=== PATIENT | male | born 1970 | race Caucasian/White ===

== ENCOUNTER 2016-11-10 17:14 | Inpatient (IN) | payer MEDICAID, OTHER ==
[2016-11-10 17:14] VITALS: BMI 27.1
[2016-11-10 18:01] LABS: BASO # 0.1 K/uL (0.0-0.2); BASO % 0.8 % (0.0-2.0); EOS # 0.2 K/uL (0.0-0.7); EOS % 2.1 % (0.0-4.0); HEMOGLOBIN 14.4 g/dL (12.0-18.0); LYMPH # 3.7 K/uL (1.0-4.3); MEAN CELL VOLUME 93.7 fL (80.0-94.0); MEAN CORPUSCULAR HEMOGLOBIN 31.2 pg (27.0-31.0); MEAN CORPUSCULAR HGB CONC 33.3 g/dL (33.0-37.0); MEAN PLATELET VOLUME 8.6 fL (7.2-11.7); MONO # 1.2 K/uL (0.0-0.8); MONO % 15.9 % (0.0-10.0); NEUT # 2.5 K/uL (1.8-7.0); NEUT % 32.2 % (50.0-75.0); RBC 4.61 Mil/uL (4.40-5.90); RED CELL DISTRIBUTION WIDTH 12.5 % (11.5-14.5); WHITE BLOOD COUNT 7.6 K/uL (4.8-10.8)
--- NOTE | 2016-11-10 18:08 | C.PDOC ---
History Of Present Illness <Hien Sandhu - Last Filed: 11/10/16 18:54> <Rajinder King - Last Filed: 11/10/16 19:43> 45 year old male presents to the ED seeking detox from heroin. Patient states last use of heroin was this morning through IV DA. He denies any physical complaints at this time or suicidal or homicidal ideations. (Hien Sandhu) History Per: Patient History/Exam Limitations: no limitations Onset/Duration Of Symptoms: Unknown Suicide/Self Injury Attempted (Context): None Associated Symptoms: denies: Suicidal Thoughts, Suicidal Plan Involuntary Hold By: None Recent travel outside of the [place]: No <Hien Sandhu - Last Filed: 11/10/16 18:54> <Rajinder King - Last Filed: 11/10/16 19:43> Time Seen by Provider: 11/10/16 17:32 Chief Complaint (Nursing): Substance Abuse Past Medical History Reviewed: Historical Data, Nursing Documentation, Vital Signs - Medical History PMH: Diabetes Family History: States: Unknown Family Hx - Social History Hx Tobacco Use: Yes Hx Alcohol Use: Yes Hx Substance Use: Yes (Heroin) - Immunization History Hx Tetanus Toxoid Vaccination: Yes Hx Influenza Vaccination: No Hx Pneumococcal Vaccination: No <Hien Sandhu - Last Filed: 11/10/16 18:54> Review Of Systems Constitutional: Negative for: Fever, Chills Cardiovascular: Negative for: Chest Pain, Palpitations Respiratory: Negative for: Cough, Shortness of Breath Gastrointestinal: Negative for: Nausea, Vomiting, Abdominal Pain, Diarrhea Psych: Negative for: Suicidal ideation <Hien Sandhu - Last Filed: 11/10/16 18:54> Physical Exam - Physical Exam Appears: Non-toxic, No Acute Distress Skin: Warm, Dry Head: Atraumatic Eye(s): bilateral: Normal Inspection, PERRL, EOMI Oral Mucosa: Moist Neck: Supple Chest: Symmetrical, No Deformity Cardiovascular: Rhythm Regular, No Murmur Respiratory: Normal Breath Sounds, No Rales, No Rhonchi, No Wheezing Gastrointestinal/Abdominal: Soft, No Tenderness, No Distention, No Guarding, No Rebound Extremity: Normal ROM, No Tenderness Neurological/Psych: Oriented x3, Normal Speech, Normal Cognition, Normal Cranial Nerves, Normal Motor, Normal Sensation, Normal Reflexes <Hien Sandhu - Last Filed: 11/10/16 18:54> ED Course And Treatment - Laboratory Results Result Diagrams: 11/10/16 17:58 11/10/16 17:58 O2 Sat by Pulse Oximetry: 98 (room air ) <Hien Sandhu - Last Filed: 11/10/16 18:54> - Laboratory Results Result Diagrams: 11/10/16 17:58 11/10/16 17:58 <Rajinder King - Last Filed: 11/10/16 19:43> Medical Decision Making <Hien Sandhu - Last Filed: 11/10/16 18:54> <Rajinder King - Last Filed: 11/10/16 19:43> Medical Decision Making: Patient is medically cleared. (Hien Sandhu) Disposition - Disposition Disposition Time: 18:55 <Hien Sandhu - Last Filed: 11/10/16 18:54> Discussed With : Vishnu Rhodes Doctor Will See Patient In The: Hospital Counseled Patient/Family Regarding: Diagnosis - Disposition Disposition Time: 19:43 <Rajinder King - Last Filed: 11/10/16 19:43> - Disposition Disposition: HOSPITALIZED Condition: STABLE - Clinical Impression Clinical Impression: Opiate dependence - Scribe Statement The provider has reviewed the documentation as recorded by the Scribe <Hien Sandhu - Last Filed: 11/10/16 18:54> <Rajinder King - Last Filed: 11/10/16 19:43> - Scribe Statement Jenny Tyson All medical record entries made by the Scribe were at my direction and personally dictated by me. I have reviewed the chart and agree that the record accurately reflects my personal performance of the history, physical exam, medical decision making, and the department course for this patient. I have also personally directed, reviewed, and agree with the discharge instructions and disposition. (Hien Sandhu) Physician Patient Turnover Patient Signed Over To: Rajinder King Handoff Comments: Pending possible detox admission <Hien Sandhu - Last Filed: 11/10/16 18:54>
[2016-11-10 18:09] LABS: ALBUMIN 4.3 g/dL (3.5-5.0)
[2016-11-10 18:11] LABS: URINE BACTERIA RARE (<OCC); URINE BILIRUBIN NEGATIVE (NEGATIVE); URINE BLOOD NEGATIVE (NEGATIVE); URINE CLARITY Clear (Clear); URINE COLOR Yellow (YELLOW); URINE GLUCOSE (UA) NORMAL (Normal); URINE LEUKOCYTE ESTERASE NEG Leu/uL (Negative); URINE NITRATE NEGATIVE (NEGATIVE); URINE PROTEIN NEGATIVE (NEGATIVE); URINE UROBILINOGEN NORMAL mg/dL (0.2-1.0)
[2016-11-10 18:12] LABS: ALB/GLOB RATIO 0.9 (1.0-2.1); AST/SGOT 155 U/L (17-59); GFR AFRICAN-AMERICAN > 60; GFR NON-AFRICAN AMERICAN > 60
[2016-11-10 18:13] LABS: ALT/SGPT 251 U/L (21-72); BARBITURATES, UR NEGATIVE (NEGATIVE); BLOOD UREA NITROGEN 14 mg/dL (9-20); CALCIUM 9.4 mg/dl (8.6-10.4)
[2016-11-10 18:14] LABS: BENZODIAZEPINES, UR NEGATIVE (NEGATIVE)
[2016-11-10 18:17] LABS: OPIATES, UR POSITIVE (NEGATIVE)
[2016-11-10 18:18] LABS: PHENCYCLIDINE, UR NEGATIVE (NEGATIVE)
--- NOTE | 2016-11-10 20:51 | PCM.BM ---
<KimberleyRosemary M - Last Filed: 11/10/16 20:50> Treatment Plan Problems - Problems identified on initial assessmt Heroin Dependence Date Initiated: 11/10/16 Time Initiated: 20:50 Assessment reference: NA Status: Active Treatment assets and liabiliti Patient Assests: ADL independent Patient Liabilities: substance abuse, medical problems - Milieu Protocol Maintain good personal hygiene: daily Encourage regular showers, daily Remind patient to perform daily oral care, daily Assist patient to perform ADL's Maintain personal safety: every shift Educate patient to report safety concerns to staff, every shift Monitor environment for contraband/sharps Medication safety: Monitor for expected outcome, potential side effects: every shift, Assess barriers to learning: every shift, Assess readiness for medication education: every shift <Princess Richey - Last Filed: 11/12/16 10:28> Family Contact Family involvement: Famliy/SO not involved Family contact: Patient declines to allow family contact at present - Goals for Treatment Patient goals for treatment: Complete ASI. Refer to Vivitrol provider as requested. Discharge/Continuing Care - Education Needs Education Needs: Patient Medication, Patient Diagnosis/Disease Process, Patient Coping Skills, Patient Anger Management skills, Patient Placement options, Patient Community resources - Discharge Discharge Criteria: Tolerates medication w/o severe side effects, Normal sleep pattern, No longer exhibiting s/s of withdrawal, Reduction of target symptoms Discharge to:: Home - Treatment Team Participation Patient/Family/SO Statement: 11/12/16 10:28 "I want the Vivitrol shot but not the counseling". Discussed with Family/SO: No Was Patient/Family/SO present at Treatment Team Meeting: Yes
[2016-11-11] MEDS ORDERED: Aluminum Hydroxide/Magnesium Hydroxide Susp (30 mL) PO PRN (08:54)
--- NOTE | 2016-11-11 08:54 | PCM.PSYCH ---
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 Patient reports that he relapsed soon after his last detox at [facility] 5 months ago. He reports he has been clean for 4 years, from [id number]. He states of injecting 4-10 bags daily, last abuse 3 bags yesterday. Patient reports withdrawal symptoms including sweating, headaches, and anxiety. He reports irritability but denies any depressive, manic or anxiety symptoms. Patient denies any auditory or visual hallucinations or any psychotic symptoms. He reports off and on drinking but denies any other substance abuse. He denies any history of inpatient psychiatric hospitalization and h/o follow up with any psychiatrist. Past medical history DM Current Medications: Active Medications Generic Name Dose Route Start Last Admin Trade Name Freq PRN Reason Stop Dose Admin Hydroxyzine HCl 25 mg 11/10/16 23:30 11/10/16 23:35 Atarax PO 25 mg Q6H PRN Administration Anxiety Lisinopril 2.5 mg 11/11/16 10:00 Zestril PO DAILY ELI Metformin HCl 500 mg 11/11/16 08:45 Glucophage PO BIDCC ELI Trazodone HCl 100 mg 11/10/16 23:30 11/10/16 23:35 Desyrel PO 100 mg HS ELI Administration Past Psychiatric History - Past Psychiatric History Previous Treatment History: Inpatient Pertinent Medical Hx (Current Medical&Sleep Prob, Allergies): Allergies Allergy/AdvReac Type Severity Reaction Status Date / Time No Known Allergies Allergy Verified 06/02/16 09:49 Glimepiride [Amaryl] 1 mg PO DAILY #30 tab 06/12/16 Lisinopril [Zestril] 2.5 mg PO DAILY #30 tab 06/12/16 MetFORMIN [glucoPHAGE] 500 mg PO BID #60 tab 06/12/16 traZODone [Desyrel] 50 mg PO HS #30 tab 06/13/16 Review of Systems - Review of Systems All systems: reviewed and no additional remarkable complaints except - Psychiatric Psychiatric: Anxiety, Irritability. absent: Suicidal Ideation Mental Status Examination - Personal Presentation Personal Presentation: Looks stated age - Affect Affect: Constricted - Motor Activity Motor Activity: Calm - Reliability in Providing Information Reliability in Providing Information: Good - Speech Speech: Organized - Mood Mood: Anxious - Formal Thought Process Formal Thought Process: No Impairment - Obsessions/Compulsions Obsessions: No Compulsions: No - Cognitive Functions Orientation: Person, Place, Situation, Time Sensorium: Alert Attention/Concentration: Attentive Abstract Thinking: Aladdin Estimate of Intelligence: Below average Judgement: Imparied, as evidence by: Poor judgement, Intact, as evidence by: Insight regarding need for hospitalization - Risk Risk: Withdrawal, Diminished functioning - Strength & Assets Inventory Strength & Assets Inventory: Family support, Cooperative DSM 5 DX - DSM 5 DSM 5 Diagnosis: Opioid use disorder severe Opioid withdrawal Alcohol use disorder moderate - Recommended/Plan of Treatment Treatment Recommendations and Plan of Treatment: Opioids: CBT Psychoeducation Supportive therapy, individual therapy Clonidine when necessary Methadone taper Alcohol: CBT Psychoeducation Supportive therapy, individual therapy Use [place] for abstinence DM Continue prescribed medications (metformin, glimepride) Monitor s/s - Smoking Cessation Smoking Cessation Initiated: No
[2016-11-11] MEDS ORDERED: Patient's Own Drops OU SCH (10:00)
[2016-11-11 11:56] VITALS: RESP 18
[2016-11-11] MEDS: Dorzolamide 2% Opht Sol 10ml OD SCH ×2 (13:18→17:02)
[2016-11-11] MEDS: PrednisoLONE 1% Opht Susp(5 ml) OD SCH ×3 (13:19→21:50)
[2016-11-11] MEDS: Brimonidine 0.2% Opth Sol (5ml) OD SCH ×2 (13:19→21:50)
[2016-11-12] MEDS: Brimonidine 0.2% Opth Sol (5ml) OD SCH ×3 (06:24→21:45)
[2016-11-12] MEDS: PrednisoLONE 1% Opht Susp(5 ml) OD SCH ×4 (09:10→21:46)
[2016-11-12] MEDS: Dorzolamide 2% Opht Sol 10ml OD SCH ×3 (09:10→17:12)
--- NOTE | 2016-11-12 10:02 | PCM.PYCHPN ---
Psychiatric Progress Note - Psychiatric Progress Note Patient seen today, length of contact: 15 min Patient Chief Complaint: 'I came here to get help.' Problems Identified/Issues Discussed: Patient seen and evaluated, chart reviewed and discussed with the nurse. The patient reports irritability and reports withdrawal symptoms including abdominal cramps, back pain, anxiety, and sweating. He is tolerating the detox protocol medications and denies any suicidal ideation or homicidal ideation. He denies any side effects of the medications. Supportive therapy and psychoeducation were given. Medication Change: Yes (Methadone taper) Medical Record Reviewed: Yes Mental Status Examination - Cognitive Function Orientation: Person, Place, Situation, Time Memory: Intact Attention: WNL Concentration: Poor Association: WNL Fund of Knowledge: Poor - Mood Mood: Anxious - Affect Affect: Constricted - Speech Speech: Soft - Formal Thought Process Formal Thought Process: No Impairment - Suicidal Ideation Suicidal Ideation: No - Homicidal Ideation Homicidal Ideation: No Goal/Treatment Plan - Goal/Treatment Plan Need for Continued Stay: Discharge may exacerbated symptoms, Severe functional impairment Progress Toward Problem(s) and Goals/Treatment Plan: Opioids: CBT Psychoeducation Supportive therapy, individual therapy Clonidine when necessary Methadone taper Alcohol: CBT Psychoeducation Supportive therapy, individual therapy Use CT for abstinence DM Continue prescribed medications (metformin, glimepride) Monitor s/s - Smoking Cessation Smoking Cessation Initiated: No
[2016-11-13] MEDS: Brimonidine 0.2% Opth Sol (5ml) OD SCH ×3 (06:11→21:57)
[2016-11-13] MEDS: PrednisoLONE 1% Opht Susp(5 ml) OD SCH ×4 (09:13→21:58)
[2016-11-13] MEDS: Dorzolamide 2% Opht Sol 10ml OD SCH ×3 (09:13→18:15)
--- NOTE | 2016-11-13 11:49 | PCM.PYCHPN ---
Psychiatric Progress Note - Psychiatric Progress Note Patient seen today, length of contact: 16 min Patient Chief Complaint: "I feel better" Problems Identified/Issues Discussed: Patient seen and evaluated, chart reviewed and discussed with the nurse. The patient reports that he feels better today, but was uncomfortable last night. He denies any withdrawal symptoms. Patient is tolerating the detox protocol medications and denies depressive, manic or psychotic symptoms. He denies any side effects of the medications. Supportive therapy and psychoeducation were given. He wants to leave early tomorrow Medication Change: Yes (Methadone taper) Medical Record Reviewed: Yes Mental Status Examination - Cognitive Function Orientation: Person, Place, Situation, Time Memory: Intact Attention: WNL Concentration: Poor Association: WNL Fund of Knowledge: Poor - Mood Mood: Anxious - Affect Affect: Constricted - Speech Speech: Soft - Formal Thought Process Formal Thought Process: No Impairment - Suicidal Ideation Suicidal Ideation: No - Homicidal Ideation Homicidal Ideation: No Goal/Treatment Plan - Goal/Treatment Plan Need for Continued Stay: Discharge may exacerbated symptoms, Severe functional impairment Progress Toward Problem(s) and Goals/Treatment Plan: Continue meds No change in meds Support and psychoed Mi and cbt Estimated Date of D/C: 11/14/16
[2016-11-14 06:27] VITALS: BP 124/78; PULSE 62; TEMP 99; O2SAT 97
[2016-11-14] MEDS: Brimonidine 0.2% Opth Sol (5ml) OD SCH (06:32)
--- NOTE | 2016-11-14 08:40 | PCM.PYCHDC ---
Mental Status Examination - Mental Status Examination Orientation: Person, Place, Situation, Time Memory: Intact Mood: Neutral Affect: Other (Appropriate) Speech: Appropriate Attention: WNL Concentration: WNL Formal Thought Process: No Impairment Suicidal Ideation: No Current Homicidal Ideation?: No Discharge Summary - Discharge Note Reason for Hospitalization: Patient came to the hospital seeking help for heroin detox. Laboratory Data: Abnormal Lab Results 11/14/16 07:22 POC Glucose (mg/dL) 203 H Consultations:: List each consultation separately and include: 1. Reason for request. 2. Findings. 3. Follow-up Summary of Hospital Course include:: 1. Description of specific treatment plan utilized for patients during their course of treatmen. 2. Summarize the time- course for resolution of acute symptoms and/or regressed behaviors. 3. Describe issues identified and worked on during hospitalization. 4. Describe medication utilized. 5. Describe medical problems identified and treated. 6. 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 Patient reports that he relapsed soon after his last detox at [facility] 5 months ago. He reports he has been clean for 4 years, from [id number]. He states of injecting 4-10 bags daily, last abuse 3 bags yesterday. Patient reports withdrawal symptoms including sweating, headaches, and anxiety. He reports irritability but denies any depressive, manic or anxiety symptoms. Patient denies any auditory or visual hallucinations or any psychotic symptoms. He reports off and on drinking but denies any other substance abuse. He denies any history of inpatient psychiatric hospitalization and h/o follow up with any psychiatrist. Upon discharge The pt was admitted and started on treatment with psychotherapy, support, psychoeducation and medications. KS and CBT used. The pt attended groups and activities, as well as milieu therapy. All the risks and benefits of medications are discussed and the patient understood and agreed. The pt improved with the treatments provided. After care discussed with the patient. Pt states that he will attend [facility] in [place], [place]. - Final Diagnosis (DSM 5) Condition upon Discharge: STABLE DSM 5: Opioid use disorder severe Opioid withdrawal Alcohol use disorder moderate Disposition: HOME/ ROUTINE Follow-up Treatment Plan: Patient states that he will go to [facility] in [place], [place] after discharge. He states that he will try Vivitrol to stay clean. Continue below medications after discharge. Follow after care plan as discussed. Use relapse prevention skills Return to ER or call 911 if suicidal, homicidal or symptoms relapse. Stay away from stress, alcohol and drugs. See primary doctor once a year. Prescriptions/Medication Reconciliation: hydrOXYzine HCl [Atarax] 25 mg PO Q8 #60 tab traZODone [Desyrel] 100 mg PO HS #30 tab
== END 2016-11-14 08:50 | disposition home or self-care (01) | DRG 745 ==
LOC: C.ER 17:14 → C.7D 19:43
PROVIDERS: ADMIT Psychiatry & Neurology Psychiatry; ATTEND Psychiatry & Neurology Psychiatry
PROC: HZ2ZZZZ Detoxification Services for Substance Abuse Treatment (ICD-10-PCS; principal; 2016-11-11)
PROC: HZ52ZZZ Individual Psychotherapy for Substance Abuse Treatment, Cognitive-Behavioral (ICD-10-PCS; 2016-11-11)
PROC: HZ59ZZZ Individual Psychotherapy for Substance Abuse Treatment, Supportive (ICD-10-PCS; 2016-11-11)
PROC: HZ56ZZZ Individual Psychotherapy for Substance Abuse Treatment, Psychoeducation (ICD-10-PCS; 2016-11-11)
DX: F11.23 Opioid dependence with withdrawal (principal); E11.9 Type 2 diabetes mellitus without complications; F17.210 Nicotine dependence, cigarettes, uncomplicated; Z72.89 Other problems related to lifestyle

== ENCOUNTER 2017-03-22 15:57 | Emergency (ER) | payer MEDICAID ==
[2017-03-22 15:58] VITALS: BMI 27.1
[2017-03-22 16:01] VITALS: BP 128/83; PULSE 83; RESP 20; TEMP 97.8; O2SAT 98
--- NOTE | 2017-03-22 16:23 | C.PDOC ---
History Of Present Illness PATIENT LEFT WITHOUT BEING SEEN BY ME. NO PATIENT CONTACT WAS MADE BY ME. PER ADMINISTRATION, I WAS TOLD TO SIGN THE CHART, SOLELY FOR THE PURPOSE OF HAVING PATIENT OFF OF MY LIST, NOT BECAUSE I SAW THE PATIENT. I WAS ALSO TOLD BY ADMINISTRATION TO WRITE A STATEMENT STATING THAT I WAS NOT INVOLVED IN THIS PATIENT'S CARE Time Seen by Provider: 03/22/17 16:07 Chief Complaint (Nursing): Substance Abuse Past Medical History Vital Signs: Last Vital Signs Temp 97.8 F 03/22/17 15:59 Pulse 83 03/22/17 15:59 Resp 20 03/22/17 15:59 BP 128/83 03/22/17 15:59 Pulse Ox 98 03/22/17 16:41 - Medical History PMH: Diabetes, Hepatitis (Pt indicates he has Hepatitis C) Denies: HIV, HTN, Chronic Kidney Disease, Seizures, Sexually Transmitted Disease - [facility] Procedures APPLICATION OF SPLINT (10/15/13) DETOXIFICATION SERVICES FOR SUBSTANCE ABUSE TREATMENT (11/10/16) INDIV PSYCHOTHERAPY FOR SUBSTANCE ABUSE TREATMENT, SUPPORT (11/10/16) INDIV PSYCHOTHERAPY FOR SUBSTANCE ABUSE, COGNITIV BEHAVIORAL (11/10/16) INDIV PSYCHOTHERAPY FOR SUBSTANCE ABUSE, PSYCHOEDUCATION (11/10/16) MEDS MGMT FOR SUBSTANCE ABUSE TREATMENT, ANTABUSE (06/10/16) Family History: States: Unknown Family Hx - Social History Hx Tobacco Use: Yes Hx Alcohol Use: Yes (Ocassionally as per Patient) Hx Substance Use: Yes (Heroin IV) - Immunization History Hx Tetanus Toxoid Vaccination: Yes Hx Influenza Vaccination: No Hx Pneumococcal Vaccination: No ED Course And Treatment O2 Sat by Pulse Oximetry: 98 Disposition - Disposition Disposition: LEFT W/O BEING SEEN - ER ONLY Disposition Time: 16:30 Condition: UNKNOWN Forms: [facility] (Bahamian) - Clinical Impression Clinical Impression: Drug abuse
== END 2017-03-22 16:43 | disposition left against medical advice (07) ==
LOC: C.ER 15:57
DX: Z02.89 Encounter for other administrative examinations (principal); F19.10 Other psychoactive substance abuse, uncomplicated

== ENCOUNTER 2017-03-22 16:55 | Inpatient (IN) | payer MEDICAID ==
[2017-03-22 16:55] VITALS: BMI 27.1
--- NOTE | 2017-03-22 17:08 | C.PDOC ---
History Of Present Illness 46 yr old male presents to the ER for heroin detox. Last heroin use was 11am this morning and alcohol use [employer]. Patient is a pre-screened. Patient denies chest pain, SOB, nausea, vomiting, abdominal pain, SI or HI. Time Seen by Provider: 03/22/17 17:07 Chief Complaint (Nursing): Substance Abuse History Per: Patient History/Exam Limitations: no limitations Onset/Duration Of Symptoms: Persistent Suicide/Self Injury Attempted (Context): None Past Medical History Reviewed: Historical Data, Nursing Documentation, Vital Signs Vital Signs: Last Vital Signs Temp 98 F 03/22/17 19:26 Pulse 80 03/22/17 19:26 Resp 18 03/22/17 19:26 BP 129/72 03/22/17 19:26 Pulse Ox 97 03/22/17 19:26 - Medical History PMH: Diabetes, Hepatitis (Pt indicates he has Hepatitis C) - [facility] Procedures APPLICATION OF SPLINT (10/15/13) DETOXIFICATION SERVICES FOR SUBSTANCE ABUSE TREATMENT (11/10/16) INDIV PSYCHOTHERAPY FOR SUBSTANCE ABUSE TREATMENT, SUPPORT (11/10/16) INDIV PSYCHOTHERAPY FOR SUBSTANCE ABUSE, COGNITIV BEHAVIORAL (11/10/16) INDIV PSYCHOTHERAPY FOR SUBSTANCE ABUSE, PSYCHOEDUCATION (11/10/16) MEDS MGMT FOR SUBSTANCE ABUSE TREATMENT, ANTABUSE (06/10/16) Family History: States: No Known Family Hx - Social History Hx Tobacco Use: Yes Hx Alcohol Use: Yes (Ocassionally as per Patient) Hx Substance Use: Yes (Heroin IV) - Immunization History Hx Tetanus Toxoid Vaccination: Yes Hx Influenza Vaccination: No Hx Pneumococcal Vaccination: No Review Of Systems Except As Marked, All Systems Reviewed And Found Negative. Cardiovascular: Negative for: Chest Pain Respiratory: Negative for: Shortness of Breath Gastrointestinal: Negative for: Nausea, Vomiting, Abdominal Pain Psych: Negative for: Suicidal ideation Physical Exam - Physical Exam Appears: Non-toxic, No Acute Distress, Other (No acute intoxication.) Skin: Warm, Dry, No Rash Head: Atraumatic, Normacephalic Oral Mucosa: Moist Respiratory: Normal Breath Sounds, No Rales, No Rhonchi, No Stridor, No Wheezing Gastrointestinal/Abdominal: Normal Exam, Soft, No Tenderness, No Guarding, No Rebound Extremity: Normal ROM, No Swelling Neurological/Psych: Oriented x3, Normal Speech, Normal Motor, Normal Sensation ED Course And Treatment - Laboratory Results Result Diagrams: 03/22/17 17:37 03/22/17 17:37 O2 Sat by Pulse Oximetry: 98 (RA) Pulse Ox Interpretation: Normal Reevaluation Time: 18:17 Reassessment Condition: Unchanged (MED CLEAR FOR CRISIS EVAL. MEDICINE PRN FOR EVAL OF ABN LFT. CRISIS NOTIFIED) Progress - Re-Evaluation Re-evaluation Note: 03/22/17 19:24 PS RAN OUT OF DM YESTERDAY. LAST DOSE YESTERDAY. OTHERWISE COMPLIANT. WILL DOSE INSULIN, MED CONSULT FOR FURTHER DM MGMT - Data Reviewed Data Reviewed: Lab Medical Decision Making Medical Decision Making: PLAN: * Alcohol Serum * Drug Screen * CBC * CMP * Urinalysis Disposition Counseled Patient/Family Regarding: Studies Performed, Diagnosis - Disposition Disposition: HOSPITALIZED Disposition Time: 19:51 Condition: STABLE Forms: [facility] (Khmer) - POA Present On Arrival: Poor Glycemic Control - Clinical Impression Clinical Impression: Diabetes type 2, uncontrolled, Opiate dependence, Alcohol abuse - Scribe Statement The provider has reviewed the documentation as recorded by the Pamela Mckeon Provider Attestation: All medical record entries made by the Joseyibger were at my direction and personally dictated by me. I have reviewed the chart and agree that the record accurately reflects my personal performance of the history, physical exam, medical decision making, and the department course for this patient. I have also personally directed, reviewed, and agree with the discharge instructions and disposition. Decision To Admit - Pt Status Changed To: Hospital Disposition Of: Inpatient - Admit Certification Admit to Inpatient:: After my assessment, the patient will require hospitalization for at least two midnights. This is because of the severity of symptoms shown, intensity of services needed, and/or the medical risk in this patient being treated as an outpatient. - InPatient: Physician Admission Certification: I certify that this patient requires 2 or more midnights of care for the following reason:: SEE NOTE - . Bed Request Type: Detox Admitting Physician: Mya Fields Patient Diagnosis: Diabetes type 2, uncontrolled, Opiate dependence, Alcohol abuse
[2017-03-22 17:41] LABS: BASO % 0.5 % (0.0-2.0); EOS # 0.1 K/uL (0.0-0.7); EOS % 1.7 % (0.0-4.0); HEMATOCRIT 41.2 % (35.0-51.0); LYMPH # 4.1 K/uL (1.0-4.3); LYMPH % 53.5 % (20.0-40.0); MEAN CELL VOLUME 91.7 fL (80.0-94.0); MEAN CORPUSCULAR HEMOGLOBIN 30.9 pg (27.0-31.0); MEAN CORPUSCULAR HGB CONC 33.7 g/dL (33.0-37.0); MEAN PLATELET VOLUME 8.5 fL (7.2-11.7); MONO # 0.9 K/uL (0.0-0.8); MONO % 12.2 % (0.0-10.0); NRBC % 0.1 % (0.0-2.0); RED CELL DISTRIBUTION WIDTH 12.9 % (11.5-14.5); WHITE BLOOD COUNT 7.8 K/uL (4.8-10.8)
[2017-03-22 17:46] LABS: URINE BILIRUBIN NEGATIVE (NEGATIVE); URINE BLOOD NEGATIVE (NEGATIVE); URINE COLOR Colorless (YELLOW); URINE GLUCOSE (UA) 3+ mg/dL (Normal); URINE KETONE NEGATIVE (NEGATIVE); URINE LEUKOCYTE ESTERASE NEG Leu/uL (Negative); URINE PROTEIN NEGATIVE (NEGATIVE); URINE UROBILINOGEN NORMAL mg/dL (0.2-1.0); WBC URINE < 1 /hpf (0-5)
[2017-03-22 18:02] LABS: ALCOHOL SERUM 171 mg/dl (0-10); ALKALINE PHOSPHATASE 108 U/L (38-126); ALT/SGPT 288 U/L (21-72); AST/SGOT 167 U/L (17-59); BLOOD UREA NITROGEN 9 mg/dL (9-20); CALCIUM 8.7 mg/dl (8.6-10.4); CARBON DIOXIDE 24 mmol/L (22-30); CHLORIDE 97 mmol/L (98-107); GFR AFRICAN-AMERICAN > 60; GLUCOSE,RANDOM 307 mg/dL (75-110); SODIUM 131 mmol/L (132-148); TOTAL PROTEIN 8.7 g/dL (6.3-8.3)
[2017-03-22] MEDS ORDERED: (Novolin R) Insulin Human Regular 100 units/ml vial SC STA (19:24)
[2017-03-22] MEDS ORDERED: (Novolin R) Insulin Human Regular 100 units/ml vial ONE (19:29)
--- NOTE | 2017-03-22 20:14 | PCM.BM ---
<Chiquita Wells - Last Filed: 03/22/17 20:12> Treatment Plan Problems - Problems identified on initial assessmt potiential for opiate withdrawal Date Initiated: 03/22/17 Time Initiated: 20:13 Assessment reference: NA Status: Active potiential for autonomic instability related to alcohol withdrawal Date Initiated: 03/22/17 Time Initiated: 20:14 Assessment reference: NA Status: Active Treatment assets and liabiliti Patient Assests: ADL independent Patient Liabilities: substance abuse, medical problems - Milieu Protocol Maintain good personal hygiene: daily Encourage regular showers, daily Remind patient to perform daily oral care, daily Assist patient to perform ADL's Maintain personal safety: every shift Educate patient to report safety concerns to staff, every shift Monitor environment for contraband/sharps Medication safety: Monitor for expected outcome, potential side effects: every shift, Assess barriers to learning: every shift, Assess readiness for medication education: every shift <Mya Fields - Last Filed: 03/22/17 21:30> - Diagnosis (1) Opioid use disorder, severe, dependence Status: Acute Interventions: 03/22/17 21:31 * Assess 7x/week regarding severity of withdrawal * Educate regarding risks, benefits, side effects and alternatives of medications * Use Motivational Interviewing for abstinence * Use CBT for relapse prevention * Medication management for withdrawal symptoms * Encourage medication assisted treatment * (2) Alcohol use disorder, severe, dependence Status: Acute Interventions: 03/22/17 21:31 * Assess 7x/week regarding severity of withdrawal * Educate regarding risks, benefits, side effects and alternatives of medications * Use Motivational Interviewing for abstinence * Use CBT for relapse prevention * Medication management for withdrawal symptoms * Encourage medication assisted treatment * <Princess Richey - Last Filed: 03/23/17 14:35> Family Contact Family involvement: Famliy/SO not involved Family contact: Patient declines to allow family contact at present - Goals for Treatment Patient goals for treatment: Complete detox and discuss aftercare options with counselors. Discharge/Continuing Care - Education Needs Education Needs: Patient Medication, Patient Diagnosis/Disease Process, Patient Coping Skills, Patient Anger Management skills, Patient Placement options, Patient Community resources - Discharge Discharge Criteria: No longer exhibiting s/s of withdrawal, Reduction of target symptoms Discharge to:: Substance Abuse Rehab - Treatment Team Participation Discussed with Family/SO: No Was Patient/Family/SO present at Treatment Team Meeting: Yes
[2017-03-22] MEDS ORDERED: Aluminum Hydroxide/Magnesium Hydroxide Susp (30 mL) PO PRN (21:27)
[2017-03-23 07:52] LABS: ALKALINE PHOSPHATASE 110 U/L (38-126); ALT/SGPT 240 U/L (21-72); AST/SGOT 132 U/L (17-59); BILIRUBIN,TOTAL 1.2 mg/dL (0.2-1.3); BLOOD UREA NITROGEN 14 mg/dL (9-20); CALCIUM 8.7 mg/dl (8.6-10.4); CARBON DIOXIDE 26 mmol/L (22-30); CHLORIDE 100 mmol/L (98-107); GFR AFRICAN-AMERICAN > 60; GLUCOSE,RANDOM 288 mg/dL (75-110); MAGNESIUM 1.7 mg/dL (1.6-2.3); POTASSIUM 4.1 mmol/L (3.6-5.2); SODIUM 135 mmol/L (132-148); TOTAL PROTEIN 7.8 g/dL (6.3-8.3)
[2017-03-23 09:02] LABS: THYROID STIMULATING HORMONE 0.06 mIU/L (0.46-4.68)
[2017-03-23] MEDS: Multiple Vitamins Tab PO SCH (10:03)
--- NOTE | 2017-03-23 10:29 | PCM.PSYCH ---
Initial Psychiatric Evaluation - Initial Psychiatric Evaluation Type of Admission: Voluntary Legal Status: Capacity Chief Complaint (in patient's own words): I came to get help.' History of Present Illness and Precipitating Events: Patient is a 35-year-old HM, currently unemployed presented to the ED for heroin and alcohol detoxification. Patient denies any past history of inpatient psychiatric hospitalizations or any history of follow-up with any psychiatrist. However, he reports multiple detox admissions in the apst, last one was at on , few months ago. Pt reports he uses 4 bags of heroin intravenously daily, last use was yesterday. He also reports of drinking 6-pack of beer daily, also last using yesterday. As per the pt, he wanted to become sober, so he came to the detox to get help. Patient reports of withdrawal symptoms including sweating, headaches, anxiety, and cramps. However, denies any feelings of hopelessness and helplessness. He denies any suicidal ideation or homicidal ideation or any auditory or visual hallucinations. PMH None reported Current Medications: Active Medications Generic Name Dose Route Start Last Admin Trade Name Freq PRN Reason Stop Dose Admin Al Hydrox/Mg Hydrox/Simethicone 30 ml 03/22/17 21:27 Maalox 30 Ml PO TID PRN Indigestion / Heartburn Clonidine HCl 0.1 mg 03/22/17 21:28 Catapres PO Q4H PRN Symptoms of alcohol withdrawl Folic Acid 1 mg 03/23/17 10:00 03/23/17 10:03 Folic Acid PO 1 mg DAILY ELI Administration Glimepiride 1 mg 03/23/17 10:00 03/23/17 10:27 Amaryl PO 1 mg DAILY ELI Administration Hydroxyzine HCl 50 mg 03/22/17 21:22 Atarax PO Q6H PRN Anxiety Ibuprofen 600 mg 03/22/17 21:22 Motrin Tab PO Q6H PRN Pain, moderate (4-7) Lisinopril 2.5 mg 03/23/17 10:00 Zestril PO DAILY ELI Loperamide HCl 2 mg 03/22/17 21:27 Imodium PO Q8 PRN Diarrhea Lorazepam 2 mg 03/22/17 21:30 03/23/17 10:04 Ativan PO 03/26/17 21:29 2 mg Q6H ELI Administration Taper Lorazepam 1 mg 03/22/17 21:28 Ativan PO Q4H PRN Symptoms of alcohol withdrawl Metformin HCl 1,000 mg 03/23/17 10:00 03/23/17 10:04 Glucophage PO 1,000 mg BID ELI Administration Multivitamins 1 tab 03/23/17 10:00 03/23/17 10:03 Hexavitamin PO 1 tab DAILY ELI Administration Ondansetron HCl 4 mg 03/22/17 21:27 Zofran Tab PO Q8 PRN Nausea/Vomiting Thiamine HCl 100 mg 03/23/17 10:00 03/23/17 10:03 Vitamin B1 Tab PO 100 mg DAILY ELI Administration Trazodone HCl 100 mg 03/22/17 21:22 03/22/17 22:06 Desyrel PO 100 mg HS PRN Administration Insomnia Past Psychiatric History - Past Psychiatric History Previous Treatment History: Inpatient Pertinent Medical Hx (Current Medical&Sleep Prob, Allergies): Allergies Allergy/AdvReac Type Severity Reaction Status Date / Time No Known Allergies Allergy Verified 03/22/17 17:00 Glimepiride [Amaryl] 1 mg PO DAILY #30 tab 06/12/16 Lisinopril [Zestril] 2.5 mg PO DAILY #30 tab 06/12/16 MetFORMIN [glucoPHAGE] 500 mg PO BID #60 tab 06/12/16 traZODone [Desyrel] 50 mg PO HS #30 tab 06/13/16 hydrOXYzine HCl [Atarax] 25 mg PO Q8 #60 tab 11/13/16 traZODone [Desyrel] 100 mg PO HS #30 tab 11/13/16 Review of Systems - Review of Systems All systems: reviewed and no additional remarkable complaints except - Psychiatric Psychiatric: Anxiety, Irritability Mental Status Examination - Personal Presentation Personal Presentation: Looks stated age - Affect Affect: Constricted - Motor Activity Motor Activity: Calm - Reliability in Providing Information Reliability in Providing Information: Good - Speech Speech: Organized - Mood Mood: Anxious - Formal Thought Process Formal Thought Process: No Impairment - Obsessions/Compulsions Obsessions: No Compulsions: No - Cognitive Functions Orientation: Person, Place, Situation, Time Sensorium: Alert Attention/Concentration: Attentive Abstract Thinking: [place] Estimate of Intelligence: Below average Judgement: Imparied, as evidence by: Poor judgement, Intact, as evidence by: Insight regarding need for hospitalization - Risk Risk: Withdrawal, Diminished functioning - Strength & Assets Inventory Strength & Assets Inventory: Family support DSM 5 DX - DSM 5 DSM 5 Diagnosis: Opioid use disorder severe Opioid withdrawal Alcohol use disorder severe Alcohol withdrawal - Recommended/Plan of Treatment Treatment Recommendations and Plan of Treatment: Opioid use disorder severe CBT Psychoeducation Supportive therapy, individual therapy Use [place] for abstinence Opioid withdrawal CBT Psychoeducation Supportive therapy, individual therapy Clonidine when necessary Methadone taper Alcohol use disorder severe CBT Psychoeducation Supportive therapy, individual therapy Use [place] for abstinence Alcohol withdrawal CBT Psychoeducation Supportive therapy, individual therapy Ativan taper - Smoking Cessation Smoking Cessation Initiated: No
[2017-03-24] MEDS: Multiple Vitamins Tab PO SCH (09:53)
[2017-03-24] MEDS: Dorzolamide 2% Opht Sol 10ml OD SCH (18:02)
[2017-03-24] MEDS: Brimonidine 0.2% Opth Sol (5ml) OD SCH (18:04)
[2017-03-24] MEDS: PrednisoLONE 1% Opht Susp(5 ml) OD SCH (18:05)
[2017-03-24] MEDS: Latanoprost 2.5 ml Opht Soln OD SCH (22:00)
--- NOTE | 2017-03-25 05:46 | PCM.PYCHPN ---
Psychiatric Progress Note - Psychiatric Progress Note Patient seen today, length of contact: 16 min Patient Chief Complaint: "I'm getting better" Problems Identified/Issues Discussed: The pt is seen, chart reviewed, case discussed with staff. The pt is compliant with medications and reports no side-effects. Symptoms are improving but needs more time to stabilize. After care discussed, support and psychoeducation given. Medication Change: Yes (detox changes daily) Medical Record Reviewed: Yes Mental Status Examination - Cognitive Function Orientation: Person, Place, Situation, Time Memory: Intact Attention: WNL Concentration: Poor Association: WNL Fund of Knowledge: WNL - Mood Mood: Anxious - Affect Affect: Constricted - Speech Speech: Appropriate - Formal Thought Process Formal Thought Process: No Impairment - Suicidal Ideation Suicidal Ideation: No - Homicidal Ideation Homicidal Ideation: No Goal/Treatment Plan - Goal/Treatment Plan Need for Continued Stay: Discharge may exacerbated symptoms, Severe functional impairment Progress Toward Problem(s) and Goals/Treatment Plan: Methadone and Ativan detoxes continue As needed medications Gabapentin for augmentation Attend groups and activities Supportive therapy and psychoeducation [place] for abstinence CBT for relapse prevention Encourage MAT Refer to rehab or IOP Attend self-help groups as well
[2017-03-25] MEDS: Brimonidine 0.2% Opth Sol (5ml) OD SCH ×3 (09:28→17:45)
[2017-03-25] MEDS: PrednisoLONE 1% Opht Susp(5 ml) OD SCH ×3 (09:28→17:45)
[2017-03-25] MEDS: Dorzolamide 2% Opht Sol 10ml OD SCH ×2 (09:29→17:46)
[2017-03-25] MEDS: Multiple Vitamins Tab PO SCH (09:30)
[2017-03-25] MEDS ORDERED: Vitamins A & D Oint UD Foilpak TOP PRN (10:40)
--- NOTE | 2017-03-25 12:57 | PCM.PYCHPN ---
Psychiatric Progress Note - Psychiatric Progress Note Patient seen today, length of contact: 16 min Patient Chief Complaint: I came to get help.' Problems Identified/Issues Discussed: Patient seen and evaluated, chart reviewed and discussed with the nurse. Patient reports some improvement in the withdrawal symptoms but still reports anxiety, headaches and sweating. He reports improvement in his mood and denies any SI/HI/AVH. He is taking medication and denies any side effects. He needs more time for stabilization. Supportive therapy and psychoeducation were given. Medication Change: Yes (detox changes daily) Medical Record Reviewed: Yes Mental Status Examination - Cognitive Function Orientation: Person, Place, Situation, Time Memory: Intact Attention: WNL Concentration: Poor Association: WNL Fund of Knowledge: WNL - Mood Mood: Anxious - Affect Affect: Constricted - Speech Speech: Appropriate - Formal Thought Process Formal Thought Process: No Impairment - Suicidal Ideation Suicidal Ideation: No - Homicidal Ideation Homicidal Ideation: No Goal/Treatment Plan - Goal/Treatment Plan Need for Continued Stay: Discharge may exacerbated symptoms, Severe functional impairment Progress Toward Problem(s) and Goals/Treatment Plan: Opioid use disorder severe CBT Psychoeducation Supportive therapy, individual therapy Use [place] for abstinence Opioid withdrawal CBT Psychoeducation Supportive therapy, individual therapy Clonidine when necessary Methadone taper Alcohol use disorder severe CBT Psychoeducation Supportive therapy, individual therapy Use [place] for abstinence Alcohol withdrawal CBT Psychoeducation Supportive therapy, individual therapy Ativan taper - Smoking Cessation Smoking Cessation Initiated: No
[2017-03-25] MEDS: Latanoprost 2.5 ml Opht Soln OD SCH (22:14)
--- NOTE | 2017-03-26 08:47 | PCM.PYCHDC ---
Mental Status Examination - Mental Status Examination Orientation: Person, Place, Situation, Time Memory: Intact Mood: Neutral Affect: Constricted Speech: Appropriate Attention: WNL Concentration: WNL Association: WNL Fund of Knowledge: WNL Formal Thought Process: No Impairment Suicidal Ideation: No Current Homicidal Ideation?: No Discharge Summary - Discharge Note Reason for Hospitalization: Opioid Detox Laboratory Data: Abnormal Lab Results 03/26/17 07:41 POC Glucose (mg/dL) 265 H Consultations:: List each consultation separately and include: 1. Reason for request. 2. Findings. 3. Follow-up Summary of Hospital Course include:: 1. Description of specific treatment plan utilized for patients during their course of treatmen. 2. Summarize the time- course for resolution of acute symptoms and/or regressed behaviors. 3. Describe issues identified and worked on during hospitalization. 4. Describe medication utilized. 5. Describe medical problems identified and treated. 6. Reassessment of suicide risk Summary of Hospital Course: The pt was admitted and started on treatment with psychotherapy, support, psychoeducation and medications. CT and CBT used. The pt attended groups and activities, as well as milieu therapy. All the risks and benefits of medications are discussed and the patient understood and agreed. The pt improved with the treatments provided. After care discussed with the patient. Today the Pt stated that he feels great Pt stated the he plans to attend [facility] - Diagnosis (1) Opioid use disorder, severe, dependence Status: Acute (2) Alcohol use disorder, severe, dependence Status: Acute - Final Diagnosis (DSM 5) Condition upon Discharge: STABLE Disposition: HOME/ ROUTINE Follow-up Treatment Plan: Continue below medications after discharge. Follow after care plan as discussed. Use relapse prevention skills Return to ER or call 911 if suicidal, homicidal or symptoms relapse. Stay away from stress, alcohol and drugs. See primary doctor regularly and get labs. Pt states that his , whom he lives with, will pick him up He stated the he will seek treatment and help at [facility] Prescriptions/Medication Reconciliation: traZODone [Desyrel] 100 mg PO HS PRN #30 tab PRN Reason: Insomnia
[2017-03-26] MEDS: Multiple Vitamins Tab PO SCH (09:42)
[2017-03-26] MEDS: Brimonidine 0.2% Opth Sol (5ml) OD SCH (09:43)
[2017-03-26] MEDS: Dorzolamide 2% Opht Sol 10ml OD SCH (09:43)
[2017-03-26] MEDS: PrednisoLONE 1% Opht Susp(5 ml) OD SCH (09:44)
[2017-03-26 10:46] VITALS: BP 111/77; PULSE 86; RESP 20; TEMP 98.2; O2SAT 97
== END 2017-03-26 10:00 | disposition home or self-care (01) | DRG 744 ==
LOC: C.ER 16:55 → C.7D 19:52
PROVIDERS: ADMIT Psychiatry & Neurology Psychiatry; ATTEND Psychiatry & Neurology Psychiatry
PROC: HZ2ZZZZ Detoxification Services for Substance Abuse Treatment (ICD-10-PCS; principal; 2017-03-22)
PROC: HZ59ZZZ Individual Psychotherapy for Substance Abuse Treatment, Supportive (ICD-10-PCS; 2017-03-22)
PROC: HZ46ZZZ Group Counseling for Substance Abuse Treatment, Psychoeducation (ICD-10-PCS; 2017-03-22)
DX: F11.23 Opioid dependence with withdrawal (principal); F10.239 Alcohol dependence with withdrawal, unspecified; E11.65 Type 2 diabetes mellitus with hyperglycemia

== ENCOUNTER 2017-08-24 13:40 | Inpatient (IN) | payer MEDICAID, OTHER ==
[2017-08-24 13:40] VITALS: BMI 27.1
[2017-08-24 14:46] LABS: BASO # 0.1 K/uL (0.0-0.2); BASO % 0.9 % (0.0-2.0); EOS # 0.2 K/uL (0.0-0.7); EOS % 2.3 % (0.0-4.0); HEMOGLOBIN 14.2 g/dL (12.0-18.0); LYMPH # 3.4 K/uL (1.0-4.3); LYMPH % 47.3 % (20.0-40.0); MEAN CELL VOLUME 93.7 fL (80.0-94.0); MEAN CORPUSCULAR HEMOGLOBIN 32.2 pg (27.0-31.0); MEAN CORPUSCULAR HGB CONC 34.4 g/dL (33.0-37.0); MEAN PLATELET VOLUME 8.1 fL (7.2-11.7); MONO # 0.9 K/uL (0.0-0.8); MONO % 11.9 % (0.0-10.0); NEUT # 2.7 K/uL (1.8-7.0); NEUT % 37.6 % (50.0-75.0); RBC 4.4 Mil/uL (4.40-5.90); RED CELL DISTRIBUTION WIDTH 13.3 % (11.5-14.5); WHITE BLOOD COUNT 7.3 K/uL (4.8-10.8)
[2017-08-24 14:48] LABS: URINE BILIRUBIN NEGATIVE (NEGATIVE); URINE BLOOD NEGATIVE (NEGATIVE); URINE CLARITY Clear (Clear); URINE COLOR Yellow (YELLOW); URINE GLUCOSE (UA) 3+ mg/dL (Normal); URINE LEUKOCYTE ESTERASE NEG Leu/uL (Negative); URINE PROTEIN 1+ mg/dL (NEGATIVE); URINE UROBILINOGEN NORMAL mg/dL (0.2-1.0)
[2017-08-24 15:00] LABS: ALB/GLOB RATIO 0.8 (1.0-2.1); ALBUMIN 4.4 g/dL (3.5-5.0); ALT/SGPT 412 U/L (21-72); AST/SGOT 260 U/L (17-59); BLOOD UREA NITROGEN 11 mg/dL (9-20); CALCIUM 9.5 mg/dl (8.6-10.4); GFR AFRICAN-AMERICAN > 60; GFR NON-AFRICAN AMERICAN > 60
[2017-08-24 15:06] LABS: BARBITURATES, UR NEGATIVE (NEGATIVE); BENZODIAZEPINES, UR NEGATIVE (NEGATIVE); PHENCYCLIDINE, UR NEGATIVE (NEGATIVE)
[2017-08-24 15:09] LABS: OPIATES, UR POSITIVE (NEGATIVE)
--- NOTE | 2017-08-24 15:18 | C.PDOC ---
History Of Present Illness 46 y/o male with history of DM presents to ED requesting detox from Heroin and ETOH. Patient states last used was earlier today and reports he is compliant with DM medication. Patient denies history of withdrawal seizures, SI/HI or any other complaints at this time. Time Seen by Provider: 08/24/17 14:01 Chief Complaint (Nursing): Substance Abuse History Per: Patient History/Exam Limitations: no limitations Onset/Duration Of Symptoms: Days Current Symptoms Are (Timing): Still Present Suicide/Self Injury Attempted (Context): None Modifying Factor(s): Alcohol Past Medical History Reviewed: Historical Data, Nursing Documentation, Vital Signs Vital Signs: Last Vital Signs Temp 97.8 F 08/24/17 15:50 Pulse 73 08/24/17 15:50 Resp 20 08/24/17 15:50 BP 130/70 08/24/17 15:50 Pulse Ox 99 08/24/17 15:50 - Medical History PMH: Diabetes Surgical History: No Surg Hx - [facility] Procedures APPLICATION OF SPLINT (10/15/13) DETOXIFICATION SERVICES FOR SUBSTANCE ABUSE TREATMENT (03/22/17) GROUP PRUNER FOR SUBSTANCE ABUSE TREATMENT, PSYCHOEDUCATION (03/22/17) INDIV PSYCHOTHERAPY FOR SUBSTANCE ABUSE TREATMENT, SUPPORT (03/22/17) INDIV PSYCHOTHERAPY FOR SUBSTANCE ABUSE, COGNITIV BEHAVIORAL (11/10/16) INDIV PSYCHOTHERAPY FOR SUBSTANCE ABUSE, PSYCHOEDUCATION (11/10/16) MEDS MGMT FOR SUBSTANCE ABUSE TREATMENT, ANTABUSE (06/10/16) Family History: States: No Known Family Hx - Social History Hx Tobacco Use: Yes Hx Alcohol Use: Yes Hx Substance Use: Yes - Immunization History Hx Tetanus Toxoid Vaccination: Yes Hx Influenza Vaccination: No Hx Pneumococcal Vaccination: No Review Of Systems Constitutional: Negative for: Fever, Chills Cardiovascular: Negative for: Chest Pain Gastrointestinal: Negative for: Nausea, Vomiting Psych: Negative for: Anxiety, Suicidal ideation, Withdrawal Physical Exam - Physical Exam Appears: Non-toxic, No Acute Distress Skin: Warm, Dry, No Rash Head: Atraumatic, Normacephalic Eye(s): bilateral: Normal Inspection, EOMI Nose: Normal Oral Mucosa: Moist Neck: Normal ROM, Supple Chest: Symmetrical Cardiovascular: Rhythm Regular Respiratory: Normal Breath Sounds, No Accessory Muscle Use, No Rales, No Rhonchi , No Wheezing Gastrointestinal/Abdominal: Soft, No Tenderness, No Guarding, No Rebound Neurological/Psych: Oriented x3, Normal Speech, Normal Cognition ED Course And Treatment - Laboratory Results Result Diagrams: 08/24/17 14:41 08/24/17 14:41 O2 Sat by Pulse Oximetry: 100 (RA) Pulse Ox Interpretation: Normal Progress Note: Patient eval by social work nurse. Patient admitted under Dr. Fields service for detox Disposition - Disposition Disposition: HOSPITALIZED Disposition Time: 15:00 Condition: STABLE - Clinical Impression Clinical Impression: DM2 (diabetes mellitus, type 2), Opioid dependence, Alcohol dependence - PA / STONE SETTER / Resident Statement MD/DO has reviewed & agrees with the documentation as recorded. - Scribe Statement The provider has reviewed the documentation as recorded by the Pamela Damon All medical record entries made by the Joseyibger were at my direction and personally dictated by me. I have reviewed the chart and agree that the record accurately reflects my personal performance of the history, physical exam, medical decision making, and the department course for this patient. I have also personally directed, reviewed, and agree with the discharge instructions and disposition.
--- NOTE | 2017-08-24 15:45 | PCM.BM ---
<Sandy Sheridan - Last Filed: 08/24/17 15:43> Treatment Plan Problems - Problems identified on initial assessmt Potential for alcohol withdrawal Date Initiated: 08/24/17 Time Initiated: 15:43 Assessment reference: NA Status: Active Priority: 1 Potential for opiate withdrawal Date Initiated: 08/24/17 Time Initiated: 15:44 Assessment reference: NA Status: Active Priority: 2 Treatment assets and liabiliti Patient Assests: cooperative, ADL independent, negotiates basic needs, cognitively intact Patient Liabilities: substance abuse (opiates,ETOH), medical problems (DM,h/o corneal transplant) - Milieu Protocol Maintain good personal hygiene: daily Encourage regular showers, daily Remind patient to perform daily oral care, daily Assist patient to perform ADL's Conduct patient checks and document Observation sheet: Q15 minutes Maintain personal safety: every shift Educate patient to report safety concerns to staff, every shift Monitor environment for contraband/sharps Medication safety: Monitor for expected outcome, potential side effects: every shift, Assess barriers to learning: every shift, Assess readiness for medication education: every shift <Mya Fields - Last Filed: 08/25/17 17:45> - Diagnosis (1) Alcohol use disorder, severe, dependence Status: Acute Interventions: 08/25/17 17:45 * Assess 7x/week regarding severity of withdrawal * Educate regarding risks, benefits, side effects and alternatives of medications * Use Motivational Interviewing for abstinence * Use CBT for relapse prevention * Medication management for withdrawal symptoms * Encourage medication assisted treatment *
[2017-08-24] MEDS ORDERED: Aluminum Hydroxide/Magnesium Hydroxide Susp (30 mL) PO PRN (17:26)
[2017-08-24] MEDS: Multiple Vitamins Tab PO SCH (17:55)
[2017-08-24] MEDS: Dorzolamide 2% Opht Sol 10ml OD SCH (19:00)
[2017-08-24] MEDS: Latanoprost 2.5 ml Opht Soln OD SCH (21:34)
[2017-08-25 08:04] LABS: ALB/GLOB RATIO 0.9 (1.0-2.1); ALT/SGPT 370 U/L (21-72); AST/SGOT 246 U/L (17-59); BLOOD UREA NITROGEN 12 mg/dL (9-20); CALCIUM 9.4 mg/dl (8.6-10.4); GFR AFRICAN-AMERICAN > 60; GFR NON-AFRICAN AMERICAN > 60; HDL CHOLESTEROL 62 mg/dL (30-70)
[2017-08-25 08:14] LABS: LDL CHOLESTEROL 101 mg/dL (0-129)
[2017-08-25] MEDS: Multiple Vitamins Tab PO SCH (09:43)
[2017-08-25] MEDS: Dorzolamide 2% Opht Sol 10ml OD SCH ×2 (09:43→19:39)
--- NOTE | 2017-08-25 12:27 | PCM.PSYCH ---
Initial Psychiatric Evaluation - Initial Psychiatric Evaluation Type of Admission: Voluntary Legal Status: Capacity Chief Complaint (in patient's own words): "I need to get clean" History of Present Illness and Precipitating Events: Patient is a 46-year-old LM with one 8-y/o child, the pt lives with his mother and is currently unemployed but on workman's comp due to an eye injury at work, in 2015. He is presented to the ED for heroin and alcohol detoxification. Patient denies any past history of inpatient psychiatric hospitalizations or any history of follow-up with any psychiatrist. However, he reports multiple detox admissions in the past, last one was with us in February. Pt reports he uses 5-6 bags of heroin intravenously daily, last use was yesterday. He also reports of drinking 12 "tall" (24 oz) beers daily, also last using yesterday. He denies all other drugs. He reports wdw sxs. PMH: None reported Past psych hx: Denies Family psych hx: Denies Current Medications: Active Medications Generic Name Dose Route Start Last Admin Trade Name Freq PRN Reason Stop Dose Admin Al Hydrox/Mg Hydrox/Simethicone 30 ml 08/24/17 17:26 Maalox 30 Ml PO TID PRN Indigestion / Heartburn Clonidine HCl 0.1 mg 08/24/17 17:26 Catapres PO Q8 PRN COWS Score More or Equal to 5 Dorzolamide HCl 1 ml 08/24/17 18:00 08/25/17 09:43 Trusopt OD 1 drop BID ELI Administration Folic Acid 1 mg 08/24/17 17:30 08/25/17 09:43 Folic Acid PO 1 mg DAILY ELI Administration Glipizide 10 mg 08/25/17 07:30 08/25/17 08:48 Glucotrol PO 10 mg ACB ELI Administration Hydroxyzine HCl 25 mg 08/24/17 17:26 Atarax PO Q4H PRN Anxiety Ibuprofen 400 mg 08/24/17 17:26 Motrin Tab PO Q6H PRN Pain, moderate (4-7) Latanoprost 1 ml 08/24/17 22:00 08/24/17 21:34 Xalatan Opht OD 1 ml HS ELI Administration Loperamide HCl 2 mg 08/24/17 17:26 Imodium PO Q8 PRN Diarrhea Lorazepam 1 mg 08/24/17 17:28 Ativan PO Q4H PRN Symptoms of alcohol withdrawl Lorazepam 2 mg 08/24/17 22:00 08/25/17 09:43 Ativan PO 08/28/17 21:59 2 mg Q6H ELI Administration Taper Metformin HCl 850 mg 08/24/17 18:00 08/25/17 09:44 Glucophage PO 850 mg BID ELI Administration Methadone HCl 15 mg 08/25/17 10:00 08/25/17 09:53 Methadone PO 08/29/17 09:59 15 mg Q24H ELI Administration Taper Multivitamins 1 tab 08/24/17 17:30 08/25/17 09:43 Hexavitamin PO 1 tab DAILY ELI Administration Nicotine 1 patch 08/25/17 10:00 08/25/17 09:43 Nicoderm Cq TD 1 patch DAILY ELI Administration Ondansetron HCl 4 mg 08/24/17 17:26 Zofran Tab PO Q8 PRN Nausea/Vomiting Thiamine HCl 100 mg 08/24/17 17:30 08/25/17 09:43 Vitamin B1 Tab PO 100 mg DAILY ELI Administration Trazodone HCl 100 mg 08/24/17 17:26 08/24/17 22:24 Desyrel PO 100 mg HS PRN Administration Insomnia Past Psychiatric History - Past Psychiatric History Previous Treatment History: None Pertinent Medical Hx (Current Medical&Sleep Prob, Allergies): Allergies Allergy/AdvReac Type Severity Reaction Status Date / Time No Known Allergies Allergy Verified 03/22/17 17:00 Glimepiride [Amaryl] 1 mg PO DAILY #30 tab 06/12/16 Lisinopril [Zestril] 2.5 mg PO DAILY #30 tab 06/12/16 MetFORMIN [glucoPHAGE] 500 mg PO BID #60 tab 06/12/16 traZODone [Desyrel] 50 mg PO HS #30 tab 06/13/16 hydrOXYzine HCl [Atarax] 25 mg PO Q8 #60 tab 11/13/16 traZODone [Desyrel] 100 mg PO HS #30 tab 11/13/16 Insulin Human Regular [Novolin R] 4 unit SC STAT unit 03/26/17 metFORMIN [glucOPHAGE] 1,000 mg PO BID tab 03/26/17 traZODone [Desyrel] 100 mg PO HS PRN #30 tab 03/26/17 Review of Systems - Neurological Neurological: UNREMARKABLE - Psychiatric Psychiatric: Abnormal Sleep Pattern, Anxiety, Difficulty Concentrating. absent : Hallucinations, Homicidal Ideation, Suicidal Ideation Mental Status Examination - Personal Presentation Personal Presentation: Looks stated age - Affect Affect: Constricted - Motor Activity Motor Activity: Calm - Reliability in Providing Information Reliability in Providing Information: Good - Speech Speech: Organized - Mood Mood: Depressed, Anxious - Formal Thought Process Formal Thought Process: No Impairment - Cognitive Functions Orientation: Person, Place, Situation, Time Sensorium: Alert Attention/Concentration: Attentive Estimate of Intelligence: Average Judgement: Intact, as evidence by: Insight regarding need for hospitalization Memory: Recent intact, as evidence by: Ability to recall events of the day, Remote intact, as evidenced by: Abilit to recall sig. life events - Risk Risk: Withdrawal, Diminished functioning - Strength & Assets Inventory Strength & Assets Inventory: Cooperative - Limitations Limitations: Living alone DSM 5 DX - DSM 5 DSM 5 Diagnosis: Opioid withdrwal Alcohol withrawal Opioid use d/o - severe Alcohol use d/o - severe - Recommended/Plan of Treatment Treatment Recommendations and Plan of Treatment: Methadone and ativan detox As needed medications Gabapentin for augmentation if needed All risks, benefits and alternatives of medications, including no medications, discussed and the patient understood and agreed. Attend groups and activities Supportive therapy and psychoeducation [place] for abstinence CBT for relapse prevention Encourage MAT Refer to rehab or IOP Attend self-help groups as well [place] for smoking cessation and patch if needed 34 min Projected ELOS: 4-5 days Prognosis: good w treatment - Smoking Cessation Smoking Cessation Initiated: Yes
[2017-08-25] MEDS: Latanoprost 2.5 ml Opht Soln OD SCH (21:07)
[2017-08-26] MEDS: Multiple Vitamins Tab PO SCH (09:18)
[2017-08-26] MEDS: Dorzolamide 2% Opht Sol 10ml OD SCH ×3 (09:19→21:58)
[2017-08-26] MEDS: PrednisoLONE 1% Opht Susp(5 ml) OU SCH ×3 (13:38→21:57)
[2017-08-26] MEDS ORDERED: Vitamins A & D Oint UD Foilpak TOP PRN (13:52)
--- NOTE | 2017-08-26 21:39 | PCM.PYCHPN ---
Psychiatric Progress Note - Psychiatric Progress Note Patient seen today, length of contact: 15 min Patient Chief Complaint: i need predisone for my corneal transplant Problems Identified/Issues Discussed: pt seen and examined. discussed with staff sleep is fragmented some aches and pains concern about corneal transplant he hjas had 2 of them Medical Problems: corneal transplants Diagnostic Results: reviewed DSM 5 Symptoms Update: insomnia anxiety Medication Change: Yes (tapers) Medical Record Reviewed: Yes Mental Status Examination - Cognitive Function Orientation: Person, Place, Time Memory: Intact Attention: WNL Concentration: WNL Association: WNL Fund of Knowledge: WNL - Mood Mood: Depressed, Anxious - Affect Affect: Constricted - Speech Speech: Appropriate - Formal Thought Process Formal Thought Process: No Impairment - Suicidal Ideation Suicidal Ideation: No - Homicidal Ideation Homicidal Ideation: No Goal/Treatment Plan - Goal/Treatment Plan Need for Continued Stay: Discharge may exacerbated symptoms Progress Toward Problem(s) and Goals/Treatment Plan: opiate withdraw methadone taper opiate use disorder CBT IN group milieu and recreational therapy supportive psychotherapy alcohol withdrawal benzodiazepine taper alcohol use disorder IN CBT supportive psychotherapy group milieu and recreation al therapy Estimated Date of D/C: 08/27/17 - Smoking Cessation Smoking Cessation Initiated: Yes
[2017-08-26] MEDS: Latanoprost 2.5 ml Opht Soln OD SCH (21:58)
[2017-08-27 06:37] VITALS: TEMP 98.2
[2017-08-27 09:07] VITALS: BP 129/80; PULSE 79; RESP 20; O2SAT 97
[2017-08-27] MEDS: PrednisoLONE 1% Opht Susp(5 ml) OU SCH (09:32)
[2017-08-27] MEDS: Multiple Vitamins Tab PO SCH (09:32)
[2017-08-27] MEDS: Dorzolamide 2% Opht Sol 10ml OD SCH (09:33)
--- NOTE | 2017-08-27 10:00 | PCM.PYCHDC ---
Mental Status Examination - Mental Status Examination Orientation: Person, Place, Situation, Time Memory: Intact Mood: Neutral Affect: Broad Speech: Appropriate Attention: WNL Concentration: WNL Association: WNL Fund of Knowledge: WNL Formal Thought Process: No Impairment Suicidal Ideation: No Current Homicidal Ideation?: No Discharge Summary - Discharge Note Reason for Hospitalization: Alcohol and Heroin detox Laboratory Data: Abnormal Lab Results 08/25/17 08/26/17 07:15 07:42 POC Glucose (mg/dL) 172 H Hemoglobin A1c 7.8 H Consultations:: List each consultation separately and include: 1. Reason for request. 2. Findings. 3. Follow-up Summary of Hospital Course include:: 1. Description of specific treatment plan utilized for patients during their course of treatmen. 2. Summarize the time- course for resolution of acute symptoms and/or regressed behaviors. 3. Describe issues identified and worked on during hospitalization. 4. Describe medication utilized. 5. Describe medical problems identified and treated. 6. Reassessment of suicide risk Summary of Hospital Course: He is seen, chart reviewed and case discussed On admission: Patient is a 46-year-old LM with one 8-y/o child, the pt lives with his mother and is currently unemployed but on workman's comp due to an eye injury at work, in 2015. He is presented to the ED for heroin and alcohol detoxification. Patient denies any past history of inpatient psychiatric hospitalizations or any history of follow-up with any psychiatrist. However, he reports multiple detox admissions in the past, last one was with us in February. Pt reports he uses 5-6 bags of heroin intravenously daily, last use was yesterday. He also reports of drinking 12 "tall" (24 oz) beers daily, also last using yesterday. He denies all other drugs. He reports wdw sxs. PMH: None reported Past psych hx: Denies Family psych hx: Denies Hospital course: The pt was admitted and started on treatment with psychotherapy, support, psychoeducation and medications. DE and CBT used. The pt attended groups and activities, as well as milieu therapy. All the risks and benefits of medications are discussed and the patient understood and agreed. The pt improved with the treatments provided. After care discussed with the patient. He will go to [facility] for suboxone treatment. - Final Diagnosis (DSM 5) Condition upon Discharge: STABLE DSM 5: Opioid withdrwal Alcohol withrawal Opioid use d/o - severe Alcohol use d/o - severe Disposition: HOME/ ROUTINE Follow-up Treatment Plan: Continue below medications after discharge, including your own meds, ie eye drops Follow after care plan as discussed. Use relapse prevention skills Return to ER or call 911 if suicidal, homicidal or symptoms relapse. Stay away from stress, alcohol and drugs. See primary doctor regularly and get labs. Prescriptions/Medication Reconciliation: traZODone [Desyrel] 100 mg PO HS PRN #30 tab PRN Reason: Insomnia - Smoking Cessation Smoking Cessation Medication prescribed: No - Antipsychotic Medications Pt discharged on 2 or more routine antipsychotic medications: No
== END 2017-08-27 11:15 | disposition home or self-care (01) | DRG 745 ==
LOC: C.ER 13:40 → C.7D 15:16
PROVIDERS: ADMIT Psychiatry & Neurology Psychiatry; ATTEND Psychiatry & Neurology Psychiatry
PROC: HZ2ZZZZ Detoxification Services for Substance Abuse Treatment (ICD-10-PCS; principal; 2017-08-24)
DX: F11.23 Opioid dependence with withdrawal (principal); F10.230 Alcohol dependence with withdrawal, uncomplicated; F10.220 Alcohol dependence with intoxication, uncomplicated; Y90.2 Blood alcohol level of 40-59 mg/100 ml; E11.9 Type 2 diabetes mellitus without complications; F41.9 Anxiety disorder, unspecified; G47.00 Insomnia, unspecified; F17.210 Nicotine dependence, cigarettes, uncomplicated